=== PATIENT | male | born 1990 | race Two or more races ===

== ENCOUNTER 2017-02-09 23:14 | Emergency (ER) | payer OTHER ==
[~2017-02-09] VITALS: Ht 167.6 cm; Wt 59.4 kg
[2017-02-09 23:21] VITALS: BP 111/75
== END 2017-02-10 02:07 | disposition home or self-care (01) ==
LOC: ER 23:17
DX: S50.311A Abrasion of right elbow, initial encounter (principal); X58.XXXA Exposure to other specified factors, initial encounter; Y93.89 Activity, other specified; Y92.69 Other specified industrial and construction area as the place of occurrence of the external cause; Y99.8 Other external cause status